=== PATIENT | female | born 1995 | race Caucasian/White ===

== ENCOUNTER 2016-06-30 15:37 | Observation (INO) | payer MEDICAID ==
[2016-06-30 16:53] VITALS: BP 107/59; PULSE 78
[2016-06-30 16:53] LABS: Collection Type CCMS
[2016-06-30 16:54] LABS: COMPLETE URINE MICROSCOPIC? NO
--- NOTE | 2016-07-01 08:39 | XRAY ---
Indication: well-being. Two-dimensional ultrasound biophysical profile study was performed. Comparison: None There is a single viable intrauterine with heart rate 144 bpm. 4 quadrant DEMAR is 13.8 cm. Largest amniotic pocket is 6.2 cm. 2 points given for breathing, movements, tone, and qualitative amniotic fluid volume. Impression: Total biophysical profile score is 8 out of 8. Comment: Preliminary report was given.
== END 2016-06-30 18:30 | disposition home or self-care (01) ==
LOC: MED SURG 15:37
PROVIDERS: ADMIT Family Medicine; ATTEND Family Medicine
DX: Z34.83 Encounter for supervision of other normal pregnancy, third trimester (principal)
CPT/HCPCS: 36415; 59025; 76819; 81002; 87070; 87430; 87522; G0378

== ENCOUNTER 2017-08-09 02:59 | Observation (INO) | payer MEDICAID, OTHER ==
[2017-08-09] MEDS ORDERED: Phenergan 25 MG INJ IV ONE (03:23)
[2017-08-09] MEDS ORDERED: SUBLIMAZE 100 MCG/2 ML IV ONE (03:23)
--- NOTE | 2017-08-09 03:24 | ERPHSYRPT ---
- History of Present Illness Time Seen by Provider: 08/09/17 03:16 Historian: patient Exam Limitations: no limitations Patient Subjective Stated Complaint: RUQ pain Triage Nursing Assessment: Pt presents to the ED with complaints of RUQ abdominal pain. Pt states she last ate approximately 4 hours ago. Pt states pain is 10/10, worse with movement. Pt states nausea but denies vomiting. Skin PWD, no distress noted. Physician History: FOR THE PAST 90 MINUTES PT HAS HAD SEVERE SHARP RUQ ABDOMINAL PAIN WITH NAUSEA; FOR THE PAST HOUR CHILLS. LAST BM WAS YESTERDAY & WNL. PT DENIES FEVER, RASH, DYSURIA. Allergies/Adverse Reactions: No Known Drug Allergies Allergy (Unverified 07/31/16 04:08) Hx Tetanus, Diphtheria Vaccination/Date Given: No Hx Influenza Vaccination/Date Given: No Hx Pneumococcal Vaccination/Date Given: No Immunizations Up to Date: No - Review of Systems Constitutional: Chills, No Fever Abdominal/Gastrointestinal: Abdominal Pain, Nausea Genitourinary Symptoms: No Dysuria Skin: No Rash All Other Systems: Reviewed and Negative - Past Medical History Pertinent Past Medical History: Yes Neurological History: No Pertinent History ENT History: No Pertinent History Cardiac History: No Pertinent History Respiratory History: No Pertinent History Endocrine Medical History: No Pertinent History Musculoskeletal History: No Pertinent History GI Medical History: No Pertinent History History: No Pertinent History Psycho-Social History: No Pertinent History Female Reproductive Disorders: No Pertinent History Other Medical History: MISCARRIED 1 TIME, hep c + - Past Surgical History Past Surgical History: No Neuro Surgical History: No Pertinent History Cardiac: No Pertinent History Respiratory: No Pertinent History Gastrointestinal: No Pertinent History Genitourinary: No Pertinent History Musculoskeletal: No Pertinent History Female Surgical History: No Pertinent History - Social History Smoking Status: Current every day smoker How long have you smoked: 10years Exposure to second hand smoke: Yes Drug Use: none Patient Lives Alone: No - Female History Hx Last Menstrual Period: 07/31/2017 Hx Now: No - Nursing Vital Signs Nursing Vital Signs: Initial Vital Signs Temperature 97.5 F 08/09/17 03:07 Pulse Rate 62 08/09/17 03:07 Respiratory Rate 16 08/09/17 03:07 Blood Pressure 127/92 08/09/17 03:07 O2 Sat by Pulse Oximetry 100 08/09/17 03:07 Pain Scale Pain Intensity 0 - Physical Exam General Appearance: moderate distress, alert Eye Exam: PERRL/EOMI Ears, Nose, Throat Exam: TMs normal, pharynx normal, moist mucous membranes Neck Exam: normal inspection Respiratory Exam: lungs clear Cardiovascular Exam: normal heart sounds Gastrointestinal/Abdomen Exam: soft, normal bowel sounds, tenderness (MODERATE RUQ ABDOMINAL TENDERNESS.) Back Exam: normal range of motion Extremity Exam: normal inspection, No pedal edema Neurologic Exam: alert, cooperative Skin Exam: warm, dry SpO2 Interpretation: normal SpO2: 100 Oxygen Delivery: Room Air - Course Nursing assessment & vital signs reviewed: Yes - CT Exams Abdomen/Pelvis CT Interpretation: Tele-radiologist Report (gallbladder distention. gallstone lodged in the gallbladder neck on coronal image 52. cholelithiasis. haziness of the gallbladder wall. suspicious for acute choledystitis. distended proximal jejunal bowel loops. suspicious for mild enteritis.) Ordered Tests: Active Orders 24 hr Category Date Time Status IV Insertion STAT Care 08/09/17 03:23 Active ABDOMEN AND PELVIS W/0 CONTRAS [CT] Stat Exams 08/09/17 03:23 Taken AMYLASE Stat Lab 08/09/17 03:37 Completed CBC W DIFF Stat Lab 08/09/17 03:37 Completed CMP Stat Lab 08/09/17 03:37 Completed CULTURE,URINE Stat Lab 08/09/17 03:37 Received HCG QUALITATIVE,SERUM Stat Lab 08/09/17 03:37 Completed LIPASE Stat Lab 08/09/17 03:37 Completed UA W/ MICROSCOPIC Stat Lab 08/09/17 03:37 Completed Medication Summary Generic Name Dose Route Start Last Admin Trade Name Freq PRN Reason Stop Dose Admin Sodium Chloride 1,000 mls @ 100 mls/hr 08/09/17 03:30 08/09/17 03:29 Sodium Chloride 0.9% 1000 Ml IV 09/08/17 03:29 100 mls/hr .Q10H MIGUELINA Administration Discontinued Medications Generic Name Dose Route Start Last Admin Trade Name Freq PRN Reason Stop Dose Admin Fentanyl Citrate 50 mcg 08/09/17 03:23 08/09/17 03:29 Sublimaze 100 Mcg/2 Ml IV 08/09/17 03:24 50 mcg STAT ONE Administration Fentanyl Citrate Confirm 08/09/17 03:28 Sublimaze 100 Mcg/2 Ml Administered 08/09/17 03:29 Dose 100 mcg .ROUTE .STK-MED ONE Ceftriaxone Sodium/Dextrose 1 g in 50 mls @ 100 mls/hr 08/09/17 04:20 04:31 Rocephin 1 Gm-D5w 50 Ml Bag IV 08/09/17 04:49 100 mls/hr STAT STA Administration Ceftriaxone Sodium/Dextrose Confirm 08/09/17 04:29 Rocephin 1 Gm-D5w 50 Ml Bag Administered 08/09/17 04:30 Dose 1 g in 50 mls @ ud IV .STK-MED ONE Promethazine HCl 12.5 mg 08/09/17 03:23 08/09/17 03:29 Phenergan 25 Mg Inj IV 08/09/17 03:24 12.5 mg STAT ONE Administration Promethazine HCl Confirm 08/09/17 03:27 Phenergan 25 Mg Inj Administered 08/09/17 03:28 Dose 25 mg .ROUTE .STK-MED ONE Lab/Rad Data: Laboratory Result Diagrams 08/09/17 03:37 08/09/17 03:37 Laboratory Results 08/09/17 08/09/17 08/09/17 Range/Units 03:37 03:37 03:37 WBC 10.8 H (4.0-10.5) K/mm3 RBC 4.53 (4.1-5.4) M/mm3 Hgb 11.3 L (12.0-16.0) gm/dl Hct 36.3 (35-47) % MCV 80.1 (78-100) fl MCH 24.9 L (26-32) pg MCHC 31.1 L (32-36) g/dl RDW 16.0 H (11.5-14.0) % Plt Count 235 (150-450) K/mm3 MPV 11.2 H (6-9.5) fl Gran % 70.8 H (36.0-66.0) % Lymphocytes % 20.2 L (24.0-44.0) % Monocytes % 6.6 (0.0-12.0) % Eosinophils % 2.1 (0.00-5.0) % Basophils % 0.3 (0.0-0.4) % Basophils # 0.03 (0-0.4) Sodium 139 (136-145) mEq/L Potassium 4.2 (3.5-5.1) mEq/L Chloride 105 (98-107) mEq/L Carbon Dioxide 24.9 (21-32) mEq/L Anion Gap 13.2 (5-15) MEQ/L BUN 12 (9-20) mg/dL Creatinine 0.95 (0.55-1.30) mg/dl Estimated GFR > 60 ML/MIN Glucose 114 H (70-110) MG/DL Calcium 8.8 (8.5-10.1) mg/dL Total Bilirubin < 0.10 L (0.2-1.0) mg/dL AST 44 H (15-37) U/L ALT 80 H (12-78) U/L Alkaline Phosphatase 66 (46-116) U/L Serum Total Protein 7.5 (6.4-8.2) gm/dL Albumin 3.8 (3.4-5.0) g/dL Amylase 32 (25-115) U/L Lipase 83 (73-393) U/L Serum , Qual NEGATIVE (Negative) Ur Collection Type Urine Color (YELLOW) Urine Appearance (CLEAR) Urine pH (5-6) Ur Specific [place] (1.005-1.025) Urine Protein (Negative) Urine Ketones (NEGATIVE) Urine Blood (0-5) Servando/ul Urine Nitrite (NEGATIVE) Urine Bilirubin (NEGATIVE) Urine Urobilinogen (0-1) mg/dL Ur Leukocyte Esterase (NEGATIVE) Urine Microscopic WBC (0-5) /HPF Ur Epithelial Cells (FEW) /HPF Urine Bacteria (NEGATIVE) /HPF Urine Culture Reflexed (NO) Urine Glucose (NEGATIVE) mg/dL Specimen Received 08/09/17 Range/Units 03:37 WBC (4.0-10.5) K/mm3 RBC (4.1-5.4) M/mm3 Hgb (12.0-16.0) gm/dl Hct (35-47) % MCV (78-100) fl MCH (26-32) pg MCHC (32-36) g/dl RDW (11.5-14.0) % Plt Count (150-450) K/mm3 MPV (6-9.5) fl Gran % (36.0-66.0) % Lymphocytes % (24.0-44.0) % Monocytes % (0.0-12.0) % Eosinophils % (0.00-5.0) % Basophils % (0.0-0.4) % Basophils # (0-0.4) Sodium (136-145) mEq/L Potassium (3.5-5.1) mEq/L Chloride (98-107) mEq/L Carbon Dioxide (21-32) mEq/L Anion Gap (5-15) MEQ/L BUN (9-20) mg/dL Creatinine (0.55-1.30) mg/dl Estimated GFR ML/MIN Glucose (70-110) MG/DL Calcium (8.5-10.1) mg/dL Total Bilirubin (0.2-1.0) mg/dL AST (15-37) U/L ALT (12-78) U/L Alkaline Phosphatase (46-116) U/L Serum Total Protein (6.4-8.2) gm/dL Albumin (3.4-5.0) g/dL Amylase (25-115) U/L Lipase (73-393) U/L Serum , Qual (Negative) Ur Collection Type CCMS Urine Color YELLOW (YELLOW) Urine Appearance SLIGHTLY CLOUDY (CLEAR) Urine pH 7.0 (5-6) Ur Specific [place] 1.020 (1.005-1.025) Urine Protein NEGATIVE (Negative) Urine Ketones NEGATIVE (NEGATIVE) Urine Blood NEGATIVE (0-5) Servando/ul Urine Nitrite POSITIVE (NEGATIVE) Urine Bilirubin NEGATIVE (NEGATIVE) Urine Urobilinogen NORMAL (0-1) mg/dL Ur Leukocyte Esterase TRACE (NEGATIVE) Urine Microscopic WBC 2-5 (0-5) /HPF Ur Epithelial Cells FEW (FEW) /HPF Urine Bacteria MANY (NEGATIVE) /HPF Urine Culture Reflexed YES (NO) Urine Glucose NEGATIVE (NEGATIVE) mg/dL Specimen Received 08-09-17 0415 - Progress Discussed with : Jenn (OBS - [id number]) - Departure Time of Disposition: 05:15 Departure Disposition: Observation Clinical Impression: UTI, CHOLECYSTITIS/CHOLELITHIASIS Condition: Stable Critical Care Time: No Referrals: VIVIANA MIN [Primary Care Provider] -
[2017-08-09] MEDS ORDERED: Phenergan 25 MG INJ ONE (03:27)
[2017-08-09] MEDS ORDERED: SUBLIMAZE 100 MCG/2 ML ONE (03:28)
[2017-08-09] MEDS ORDERED: Sodium Chloride 0.9% 1000 ML 1,000 ML ONE (03:28)
[2017-08-09] MEDS ORDERED: Sodium Chloride 0.9% 1000 ML 1,000 ML IV SCH ×2 (03:30→05:42)
[2017-08-09 03:41] LABS: BASOPHIL % 0.3 % (0.0-0.4); Basophil (Absolute #) 0.03 (0-0.4); Eosinophil % 2.1 % (0.00-5.0); Eosinophil (Absolute #) 0.23 (0-0.5); Granulocyte Absolute (ANC) 7.61 (1.4-6.9); Granulocytes % 70.8 % (36.0-66.0); Hematocrit 36.3 % (35-47); Hemoglobin 11.3 gm/dl (12.0-16.0); Lymphocyte (Absolute #) 2.17 (1.0-4.6); Lymphocytes % 20.2 % (24.0-44.0); Mean Cell Volume 80.1 fl (78-100); Mean Corpuscular Hemoglobin 24.9 pg (26-32); Mean Corpuscular Hgb Concent. 31.1 g/dl (32-36); Mean Platelet Volume 11.2 fl (6-9.5); Monocyte (Absolute #) 0.71 (0.0-1.3); Monocytes % 6.6 % (0.0-12.0); Platelet Count 235 K/mm3 (150-450); Red Blood Count 4.53 M/mm3 (4.1-5.4); White Blood Count 10.8 K/mm3 (4.0-10.5)
[2017-08-09 04:15] LABS: ALBUMIN 3.8 g/dL (3.4-5.0); ALKALINE PHOSPHATASE 66 U/L (46-116); AMYLASE 32 U/L (25-115); ANION GAP 13.2 MEQ/L (5-15); Appearance SLIGHTLY CLOUDY (CLEAR); BLOOD UREA NITROGEN 12 mg/dL (9-20); Bacteria MANY /HPF (NEGATIVE); Bilirubin NEGATIVE (NEGATIVE); Blood NEGATIVE Ery/ul (0-5); CHLORIDE 105 mEq/L (98-107); Calcium 8.8 mg/dL (8.5-10.1); Carbon Dioxide 24.9 mEq/L (21-32); Creatinine 1 0.95 mg/dl (0.55-1.30); EST GLOMERULAR FILTRATION RATE > 60 ML/MIN; Epithelial Cells FEW /HPF (FEW); Glucose 114 MG/DL (70-110); Glucose NEGATIVE (NEGATIVE); Ketones NEGATIVE (NEGATIVE); LIPASE 83 U/L (73-393); Leukocyte Esterase TRACE (NEGATIVE); Nitrite POSITIVE (NEGATIVE); Potassium 4.2 mEq/L (3.5-5.1); Protein,Urine Dip NEGATIVE (Negative); SGOT/AST 44 U/L (15-37); SGPT/ALT 80 U/L (12-78); SODIUM 139 mEq/L (136-145); Total Protein 7.5 gm/dL (6.4-8.2); Urobilinogen NORMAL mg/dL (0-1)
[2017-08-09] MEDS ORDERED: ROCEPHIN 1 Gm-D5w 50 ml Bag** 1 G/50 ML IVPB IV STA (04:20)
[2017-08-09] MEDS ORDERED: ROCEPHIN 1 Gm-D5w 50 ml Bag** 1 G/50 ML IVPB IV ONE (04:29)
[2017-08-09 04:31] LABS: BILIRUBIN,TOTAL < 0.10 mg/dL (0.2-1.0)
[2017-08-09] MEDS ORDERED: Zofran 4 MG/2 ML VIAL IV PRN (05:42)
[2017-08-09] MEDS ORDERED: Phenergan 25 MG INJ IV PRN (05:42)
[2017-08-09] MEDS: MORPHINE SULFATE 4 MG INJ IV PRN ×2 (08:15→14:23)
--- NOTE | 2017-08-09 09:19 | PCM.HP ---
History of Present Illness - Chief Complaint Chief Complaint: Acute cholecysitis History of Present Illness: is a 21 year old female pt with known cholelithiasis who came to ER last night with 10/10 RUQ pain. Nausea, no vomiting, no fever. She had eaten rotisserie chicken last night; she thinks the pain is due to the [place] food she ate the night before that, as fast food typically triggers her pain. She was supposed to see a surgeon out of town when she was living elsewhere but she ended up not able to make the appointment. Her pain is 2/10 right now, immediately after receiving IV pain meds. - Review of Systems Abdominal/Gastrointestinal: Abdominal Pain, Nausea, Other (dark stools) Neurological: Dizziness (with severe abd pain) Psychological: No Anxiety, No Depression, No Suicidal Ideations All Other Systems: Reviewed and Negative Medications & Allergies Home Medications: Home Medication List No Reportable Medications [No Reported Medications] 08/09/17 [History Confirmed 08/09/17] Allergies/Adverse Reactions: Allergies Allergy/AdvReac Type Severity Reaction Status Date / Time No Known Drug Allergies Allergy Unverified 07/31/16 04:08 - Past Medical History Past Medical History: Yes Neurological History: No Pertinent History ENT History: No Pertinent History Cardiac History: No Pertinent History Respiratory History: No Pertinent History Endocrine Medical History: No Pertinent History Musculoskelatal History: No Pertinent History GI Medical History: No Pertinent History History: No Pertinent History Pyscho-Social History: No Pertinent History Reproductive Disorders: No Pertinent History Comment: MISCARRIED 1 TIME, hep c + - Female History Hx Last Menstrual Period: 07/25/17 Are you now?: No - Past Surgical History Past Surgical History: No Neuro Surgical History: No Pertinent History Cardiac History: No Pertinent History Respiratory Surgery: No Pertinent History GI Surgical History: No Pertinent History Genitourinary Surgical Hx: No Pertinent History Musculskeletal Surgical Hx: No Pertinent History Female Surgical History: No Pertinent History Other Surgical History: c section - Social History Smoking Status: Current every day smoker How long have you smoked: 10years Exposure to second hand smoke: Yes Alcohol: None Drug Use: none - Physical Exam Vital Signs: Vital Signs - 24 hr Temp Pulse Resp BP Pulse Ox 08/09/17 08:23 97.8 F 86 18 132/62 99 08/09/17 08:00 97.8 F 85 18 134/65 99 08/09/17 07:36 97.8 F 85 18 134/65 99 08/09/17 05:15 100 08/09/17 04:36 69 16 112/60 100 08/09/17 03:07 97.5 F 62 16 127/92 100 General Appearance: no apparent distress, alert, obese Neurologic Exam: oriented x 3, cooperative Eye Exam: eyes nml inspection Ears, Nose, Throat Exam: moist mucous membranes Neck Exam: normal inspection Respiratory Exam: normal breath sounds, lungs clear, No crackles/rales, No rhonchi, No wheezing Cardiovascular Exam: regular rate/rhythm, normal heart sounds, No murmur Gastrointestinal/Abdomen Exam: soft, normal bowel sounds, tenderness (RUQ), No distention, No mass, No guarding, No rebound Back Exam: normal inspection, No CVA tenderness Assessment/Plan (1) Cholelithiases Current Visit: Yes Status: Acute Qualifiers: Cholelithiasis location: gallbladder Cholecystitis presence: with cholecystitis Cholecystitis acuity: acute and chronic Biliary obstruction: without biliary obstruction Qualified Code(s): K80.12 - Calculus of gallbladder with acute and chronic cholecystitis without obstruction Assessment & Plan: Will try CLD and advance as tolerated. If she can take po and have pain controlled on po meds will d/c home for OP f/u with surgery. Surgeon is aware, discussed with ER doctor last night, nothing acute currently. (2) UTI (urinary tract infection) Current Visit: No Status: Acute Qualifiers: Urinary tract infection type: acute cystitis Assessment & Plan: on IV rocephin. Code(s): N39.0 - URINARY TRACT INFECTION, SITE NOT SPECIFIED
--- NOTE | 2017-08-09 09:22 | XRAY ---
Indication: Right upper quadrant pain and nausea. History gallstones. Multiple contiguous axial images obtained through the abdomen and pelvis without contrast as ordered. Comparison: None. Lung bases are clear. Heart is not enlarged. Noncontrasted stomach and bowel loops again appear nonobstructed. Normal appendix. No free fluid/air. There is a 2 cm stone in the neck of the gallbladder with mildly distended gallbladder. No CT features for acute cholecystitis or biliary distention. There are a few scattered tiny mesenteric nodes, possible adenitis. Nonobstructing faint left nephrocalcinosis. Tiny cul-de-sac fluid presumed physiologic from ruptured/leaking cyst. Remaining liver, pancreas, spleen, adrenal glands, kidneys, ureters, bladder, uterus, and aorta appear unremarkable for noncontrast exam. Osseous structures intact. Impression: 1. 2.5 cm stone in the neck of the gallbladder with gallbladder distention. Gallbladder sonogram may yield further information. 2. Tiny mesenteric nodes, possible mesenteric adenitis. 3. Nonobstructing left nephrocalcinosis. 4. Cul-de-sac fluid presumed from ruptured/leaking cyst. Comment: Preliminary interpretation was made by [facility]. No critical discrepancy. CTDI 28.11
[2017-08-09] MEDS ORDERED: PROTONIX 40 MG IV IV SCH (10:00)
[2017-08-09 12:07] LABS: BASOPHIL % 0.2 % (0.0-0.4); Basophil (Absolute #) 0.02 (0-0.4); Eosinophil % 2.5 % (0.00-5.0); Eosinophil (Absolute #) 0.21 (0-0.5); Granulocyte Absolute (ANC) 5.22 (1.4-6.9); Granulocytes % 62.1 % (36.0-66.0); Hematocrit 36.2 % (35-47); Hemoglobin 11.2 gm/dl (12.0-16.0); Lymphocyte (Absolute #) 2.37 (1.0-4.6); Lymphocytes % 28.2 % (24.0-44.0); Mean Cell Volume 79.7 fl (78-100); Mean Corpuscular Hgb Concent. 30.9 g/dl (32-36); Mean Platelet Volume 10.4 fl (6-9.5); Monocyte (Absolute #) 0.59 (0.0-1.3); Platelet Count 244 K/mm3 (150-450); Red Blood Count 4.54 M/mm3 (4.1-5.4); Red Cell Distribution Width 15.9 % (11.5-14.0); White Blood Count 8.4 K/mm3 (4.0-10.5)
[2017-08-09 12:13] LABS: Mean Corpuscular Hemoglobin 24.6 pg (26-32)
[2017-08-09 12:57] LABS: ALBUMIN 3.1 g/dL (3.4-5.0); ALKALINE PHOSPHATASE 55 U/L (46-116); ANION GAP 11.1 MEQ/L (5-15); BLOOD UREA NITROGEN 8 mg/dL (9-20); CHLORIDE 109 mEq/L (98-107); Calcium 8.1 mg/dL (8.5-10.1); Carbon Dioxide 23.7 mEq/L (21-32); Creatinine 1 0.76 mg/dl (0.55-1.30); EST GLOMERULAR FILTRATION RATE > 60 ML/MIN; Glucose 81 MG/DL (70-110); Potassium 3.8 mEq/L (3.5-5.1); SGOT/AST 29 U/L (15-37); SGPT/ALT 64 U/L (12-78); SODIUM 140 mEq/L (136-145); Total Protein 6.5 gm/dL (6.4-8.2)
[2017-08-09 16:02] VITALS: BP 111/56; PULSE 72; O2SAT 95
--- NOTE | 2017-08-09 16:58 | PCM.DS ---
Discharge Summary Date of Admission: 08/09/17 05:36 Admitting Physician: VIVIANA MIN Primary Care Provider: VIVIANA MIN Allergies Allergies No Known Drug Allergies Allergy (Unverified 07/31/16 04:08) Hospital Summary - Hospital Course Hospital Course: Pt admitted through ER with abd pain, has cholelithiasis. Ct abd/pelvis done without acute changes. Pain much better with IV morphine. Today she has tolerated CLD and would like to go home; has appt iwht surgery in 5d (Monday) inthe morning. - Vitals & Intake/Output Vital Signs: Vital Signs Temperature 98.4 F 08/09/17 16:00 Pulse Rate 72 08/09/17 16:00 Respiratory Rate 16 08/09/17 16:00 Blood Pressure 111/56 08/09/17 16:00 O2 Sat by Pulse Oximetry 95 08/09/17 16:00 Intake & Output: Intake & Output 08/07/17 08/08/17 08/09/17 08/10/17 11:59 11:59 11:59 11:59 Intake Total 0 Balance 0 Weight 108.4 kg - Lab Result Diagrams: 08/09/17 12:00 08/09/17 12:00 Lab Results-Last 24 Hrs: Lab Results-Last 24 Hours 08/09/17 08/09/17 Range/Units 12:00 12:00 WBC 8.4 (4.0-10.5) K/mm3 RBC 4.54 (4.1-5.4) M/mm3 Hgb 11.2 L (12.0-16.0) gm/dl Hct 36.2 (35-47) % MCV 79.7 (78-100) fl MCH 24.6 L (26-32) pg MCHC 30.9 L (32-36) g/dl RDW 15.9 H (11.5-14.0) % Plt Count 244 (150-450) K/mm3 MPV 10.4 H (6-9.5) fl Gran % 62.1 (36.0-66.0) % Lymphocytes % 28.2 (24.0-44.0) % Monocytes % 7.0 (0.0-12.0) % Eosinophils % 2.5 (0.00-5.0) % Basophils % 0.2 (0.0-0.4) % Basophils # 0.02 (0-0.4) Sodium 140 (136-145) mEq/L Potassium 3.8 (3.5-5.1) mEq/L Chloride 109 H (98-107) mEq/L Carbon Dioxide 23.7 (21-32) mEq/L Anion Gap 11.1 (5-15) MEQ/L BUN 8 L (9-20) mg/dL Creatinine 0.76 (0.55-1.30) mg/dl Estimated GFR > 60 ML/MIN Glucose 81 (70-110) MG/DL Calcium 8.1 L (8.5-10.1) mg/dL Total Bilirubin 0.10 L (0.2-1.0) mg/dL AST 29 (15-37) U/L ALT 64 (12-78) U/L Alkaline Phosphatase 55 (46-116) U/L Serum Total Protein 6.5 (6.4-8.2) gm/dL Albumin 3.1 L (3.4-5.0) g/dL Discharge Exam General Appearance: no apparent distress, alert, obese (exam done this a.m.) Neurologic Exam: oriented x 3, cooperative Skin Exam: normal color, warm, dry, No rash Respiratory Exam: normal breath sounds, No crackles/rales, No rhonchi, No wheezing Cardiovascular Exam: regular rate/rhythm, normal heart sounds, No murmur Gastrointestinal/Abdomen Exam: soft, normal bowel sounds, tenderness ( generalized), No mass, No guarding, No rebound Extremity Exam: normal inspection, No swelling Final Diagnosis/Problem List - Final Discharge Diagnosis/Problem (1) Cholelithiases Current Visit: Yes Status: Acute Assessment & Plan: D/c with percocet, f/u wiht surgery in 5d. (2) UTI (urinary tract infection) Current Visit: Yes Status: Acute Assessment & Plan: start keflex. - Discharge Disposition: Home, Self-Care Condition: Stable Prescriptions: New Cephalexin Mh 500 mg [Keflex 500 mg] 500 mg PO QID 6 Days #24 capsule Oxycodone HCl/Acetaminophen [Percocet 10-325 mg Tablet] 1 each PO QID PRN # 20 tablet MDD 4 PRN Reason: Pain Instructions: Gallstones, Urinary Tract Infection, Adult (DC) Follow up with: JUAN MONTALVO [COURTESY STAFF] - 08/14/17 8:30 am ([facility]) VIVIANA MIN [Primary Care Provider] - Forms: Discharge Instructions
[2017-08-09] MEDS ORDERED: ROCEPHIN 1 Gm-D5w 50 ml Bag** 1 G/50 ML IVPB IV SCH (22:00)
== END 2017-08-09 20:15 | disposition home or self-care (01) ==
LOC: ED 02:59 → MED SURG 05:36
PROVIDERS: ADMIT Family Medicine; ATTEND Family Medicine
DX: K80.20 Calculus of gallbladder without cholecystitis without obstruction (principal); N39.0 Urinary tract infection, site not specified
CPT/HCPCS: 36000; 36415; 74176; 80053; 81000; 82150; 83690; 84703; 85025; 87077; 87086; 87186; 93268; 96360; 96365; 96374; 96375; 99285; G0378; J0696; J2270; J2550; J3010

== ENCOUNTER 2018-05-26 00:34 | Emergency (ER) | payer SELFPAY ==
[2018-05-26 00:45] VITALS: O2SAT 98
[2018-05-26] MEDS ORDERED: Zofran 4 MG/2 ML VIAL IV ONE (01:04)
[2018-05-26] MEDS ORDERED: PROTONIX 40 MG IV IV ONE ×2 (01:04→01:09)
[2018-05-26] MEDS ORDERED: Sodium Chloride 0.9% 1000 ML 1,000 ML IV STA (01:04)
[2018-05-26] MEDS ORDERED: Sodium Chloride 0.9% 1000 ML 1,000 ML ONE (01:09)
[2018-05-26] MEDS ORDERED: Zofran 4 MG/2 ML VIAL ONE (01:09)
[2018-05-26 01:15] LABS: BASOPHIL % 0.3 % (0.0-0.4); Basophil (Absolute #) 0.03 (0-0.4); Eosinophil % 1.3 % (0.00-5.0); Eosinophil (Absolute #) 0.14 (0-0.5); Granulocyte Absolute (ANC) 8.24 (1.4-6.9); Granulocytes % 75.7 % (36.0-66.0); Hematocrit 39.7 % (35-47); Hemoglobin 13.1 gm/dl (12.0-16.0); Lymphocyte (Absolute #) 1.66 (1.0-4.6); Lymphocytes % 15.3 % (24.0-44.0); Mean Cell Volume 83.8 fl (78-100); Mean Corpuscular Hemoglobin 27.6 pg (26-32); Mean Platelet Volume 11.8 fl (6-9.5); Monocyte (Absolute #) 0.81 (0.0-1.3); Monocytes % 7.4 % (0.0-12.0); Platelet Count 246 K/mm3 (150-450); Red Blood Count 4.74 M/mm3 (4.1-5.4); Red Cell Distribution Width 13.7 % (11.5-14.0); White Blood Count 10.9 K/mm3 (4.0-10.5)
--- NOTE | 2018-05-26 01:15 | ERPHSYRPT ---
- History of Present Illness Time Seen by Provider: 05/26/18 00:45 Historian: patient Exam Limitations: clinical condition Patient Subjective Stated Complaint: abd pain started about 11pm, sharp 8/10 pain in RUQ sometimes radiating to middle and in back, nausea, vomiting x2, had issues with gallbladder in past and states shes having another flare up, has had nothing to drink for few hours, pain is worse when lying down Triage Nursing Assessment: Pt A/O x3, abd soft tender, tender with palpation RUQ , bowel sounds active x4, appears to be in pain Physician History: PATIENT WITH A HISTORY OF GALLSTONES HEPATITIS-C COMPLAINS OF ACUTE ONSET OF SHARP RIGHT UPPER ABDOMINAL PAINS SINCE 11PM LAST NIGHT AFTER EATING A MEAL. HAS ASSOCIATED EMESIS X 2. DENIES FEVER, URINARY SYMPTOMS OR DIARRHEA. STATES PAIN IS CONSTANT WITH A PAIN SCALE 8/10. Timing/Duration: yesterday Activities at Onset: none Quality: sharpness, stabbing Abdominal Pain Onset Location: RUQ Pain Radiation: no radiation Severity of Pain-Max: severe Severity of Pain-Current: severe Modifying Factors: Improves With: vomiting Associated Symptoms: loss of appetite, nausea, vomiting Previous symptoms: same symptoms as today Allergies/Adverse Reactions: No Known Drug Allergies Allergy (Unverified 07/31/16 04:08) Hx Tetanus, Diphtheria Vaccination/Date Given: No Hx Influenza Vaccination/Date Given: No Hx Pneumococcal Vaccination/Date Given: No - Review of Systems Constitutional: No Fever, No Chills Eyes: No Symptoms Ears, Nose, & Throat: No Symptoms Respiratory: No Symptoms, No Cough, No Dyspnea Cardiac: No Symptoms, No Chest Pain, No Edema, No Syncope Abdominal/Gastrointestinal: Abdominal Pain, Nausea, Vomiting, No Diarrhea Genitourinary Symptoms: No Dysuria Musculoskeletal: No Symptoms, No Back Pain, No Neck Pain Skin: No Rash Neurological: No Dizziness, No Focal Weakness, No Sensory Changes Psychological: No Symptoms Endocrine: No Symptoms All Other Systems: Reviewed and Negative - Past Medical History Pertinent Past Medical History: Yes Neurological History: No Pertinent History ENT History: No Pertinent History Cardiac History: No Pertinent History Respiratory History: No Pertinent History Endocrine Medical History: No Pertinent History Musculoskeletal History: No Pertinent History GI Medical History: No Pertinent History History: No Pertinent History Psycho-Social History: No Pertinent History Female Reproductive Disorders: No Pertinent History Other Medical History: MISCARRIED 1 TIME, hep c + - Past Surgical History Past Surgical History: Yes Neuro Surgical History: No Pertinent History Cardiac: No Pertinent History Respiratory: No Pertinent History Gastrointestinal: No Pertinent History Genitourinary: No Pertinent History Musculoskeletal: No Pertinent History Female Surgical History: Section Other Surgical History: c section - Social History Smoking Status: Current every day smoker How long have you smoked: 8 years Exposure to second hand smoke: Yes Drug Use: none Patient Lives Alone: No - Female History Hx Last Menstrual Period: unsure Hx Now: No - Nursing Vital Signs Nursing Vital Signs: Initial Vital Signs Temperature 97.4 F 05/26/18 00:36 Pulse Rate 58 L 05/26/18 00:36 Respiratory Rate 18 05/26/18 00:36 Blood Pressure 135/68 05/26/18 00:36 O2 Sat by Pulse Oximetry 98 05/26/18 00:36 Pain Scale Pain Intensity 3 - Physical Exam General Appearance: moderate distress Eye Exam: PERRL/EOMI Ears, Nose, Throat Exam: normal ENT inspection Neck Exam: normal inspection Respiratory Exam: normal breath sounds Cardiovascular Exam: regular rate/rhythm Gastrointestinal/Abdomen Exam: soft, normal bowel sounds, tenderness (MARKED RIGHT UPPER QUAD TENDERNESS) Back Exam: normal inspection Extremity Exam: normal inspection Neurologic Exam: alert, oriented x 3, cooperative Skin Exam: normal color SpO2 Interpretation: normal SpO2: 98 Oxygen Delivery: Room Air - CT Exams Abdomen/Pelvis CT Interpretation: Tele-radiologist Report (CHOLELITHIASIS WITHOUT CT EVIDENCE OF ACUTE CHOLECYSTITIS, MINIMALLY COMPLEX 3.6CM RIGHT OVARIAN CYST) Ordered Tests: Active Orders 24 hr Category Date Time Status Clean Catch Urine Specimen STAT Care 05/26/18 01:04 Active IV Insertion STAT Care 05/26/18 01:04 Active ABDOMEN AND PELVIS W/0 CONTRAS [CT] Stat Exams 05/26/18 01:05 Taken AMYLASE Stat Lab 05/26/18 01:11 Completed CBC W DIFF Stat Lab 05/26/18 01:11 Completed CMP Stat Lab 05/26/18 01:11 Completed HCG,QUALITATIVE URINE Stat Lab 05/26/18 01:11 Completed LIPASE Stat Lab 05/26/18 01:11 Completed UA W/RFX UR CULTURE Stat Lab 05/26/18 01:11 Completed Urine Triage Profile Stat Lab 05/26/18 01:11 Completed Medication Summary Discontinued Medications Generic Name Dose Route Start Last Admin Trade Name Freq PRN Reason Stop Dose Admin Hydromorphone HCl 1 mg 05/26/18 01:18 05/26/18 01:41 Hydromorphone 1 Mg/Ml Ampule IV 05/26/18 01:19 1 mg STAT ONE Administration Hydromorphone HCl Confirm 05/26/18 01:36 Hydromorphone 1 Mg/Ml Ampule Administered 05/26/18 01:37 Dose 1 mg .ROUTE .STK-MED ONE Sodium Chloride 1,000 mls @ 999 mls/hr 05/26/18 01:04 05/26/18 01:11 Sodium Chloride 0.9% 1000 Ml IV 05/26/18 02:04 999 mls/hr .Q1H1M STA Administration Sodium Chloride Confirm 05/26/18 01:09 Sodium Chloride 0.9% 1000 Ml Administered 05/26/18 01:10 Dose 1,000 mls @ ud .ROUTE .STK-MED ONE Ketorolac Tromethamine 30 mg 05/26/18 02:33 05/26/18 02:44 Toradol 30 Mg Injection IV 05/26/18 02:34 30 mg STAT ONE Administration Ketorolac Tromethamine Confirm 05/26/18 02:35 Toradol 30 Mg Injection Administered 05/26/18 02:36 Dose 30 mg .ROUTE .STK-MED ONE Ondansetron HCl 4 mg 05/26/18 01:04 05/26/18 01:12 Zofran 4 Mg/2 Ml Vial IV 05/26/18 01:05 4 mg STAT ONE Administration Ondansetron HCl Confirm 05/26/18 01:09 Zofran 4 Mg/2 Ml Vial Administered 05/26/18 01:10 Dose 4 mg .ROUTE .STK-MED ONE Pantoprazole Sodium 40 mg 05/26/18 01:04 05/26/18 01:12 Protonix 40 Mg Iv IV 05/26/18 01:05 40 mg STAT ONE Administration Pantoprazole Sodium Confirm 05/26/18 01:09 Protonix 40 Mg Iv Administered 05/26/18 01:10 Dose 40 mg IV .STK-MED ONE Lab/Rad Data: Laboratory Result Diagrams 05/26/18 01:11 05/26/18 01:11 Laboratory Results 05/26/18 05/26/18 05/26/18 Range/Units 01:11 01:11 01:11 WBC (4.0-10.5) K/mm3 RBC (4.1-5.4) M/mm3 Hgb (12.0-16.0) gm/dl Hct (35-47) % MCV (78-100) fl MCH (26-32) pg MCHC (32-36) g/dl RDW (11.5-14.0) % Plt Count (150-450) K/mm3 MPV (6-9.5) fl Gran % (36.0-66.0) % Eos # (Auto) (0-0.5) Absolute Lymphs (auto) (1.0-4.6) Absolute Monos (auto) (0.0-1.3) Lymphocytes % (24.0-44.0) % Monocytes % (0.0-12.0) % Eosinophils % (0.00-5.0) % Basophils % (0.0-0.4) % Absolute Granulocytes (1.4-6.9) Basophils # (0-0.4) Sodium 137 (137-145) mmol/L Potassium 4.0 (3.5-5.1) mmol/L Chloride 103 (98-107) mmol/L Carbon Dioxide 24 (22-30) mmol/L Anion Gap 13.8 (5-15) MEQ/L BUN 17 (7-17) mg/dL Creatinine 0.67 (0.52-1.04) mg/dL Estimated GFR > 60.0 ML/MIN Glucose 132 H (74-106) mg/dL Calcium 9.7 (8.4-10.2) mg/dL Total Bilirubin 0.30 (0.2-1.3) mg/dL AST 25 (14-36) U/L ALT 37 H (0-35) U/L Alkaline Phosphatase 77 (38-126) U/L Serum Total Protein 7.9 (6.3-8.2) g/dL Albumin 4.6 (3.5-5.0) g/dL Amylase (30-110) U/L Lipase (23-300) U/L Urine Color (YELLOW) Urine Appearance (CLEAR) Urine pH (5-6) Ur Specific [place] (1.005-1.025) Urine Protein (Negative) Urine Ketones (NEGATIVE) Urine Blood (0-5) Servando/ul Urine Nitrite (NEGATIVE) Urine Bilirubin (NEGATIVE) Urine Urobilinogen (0-1) mg/dL Ur Leukocyte Esterase (NEGATIVE) Urine WBC (Auto) (0-5) /HPF Urine RBC (Auto) (0-2) /HPF U Epithel Cells (Auto) (FEW) /HPF Urine Bacteria (Auto) (NEGATIVE) /HPF Amorphous Crystals (NEGATIVE) /HPF Urine Mucus (Auto) (NEGATIVE) /HPF Urine Culture Reflexed (NO) Urine Glucose (NEGATIVE) mg/dL Urine HCG, Qual NEGATIVE (Negative) Urine Opiates Level NEGATIVE (NEGATIVE) Ur Methadone NEGATIVE (NEGATIVE) Urine Barbiturates NEGATIVE (NEGATIVE) Ur Phencyclidine (PCP) NEGATIVE (NEGATIVE) Urine Amphetamine NEGATIVE (NEGATIVE) U Benzodiazepine Level NEGATIVE (NEGATIVE) Urine Cocaine NEGATIVE (NEGATIVE) Urine Marijuana (THC) POSITIVE (NEGATIVE) 05/26/18 05/26/18 05/26/18 Range/Units 01:11 01:11 01:11 WBC 10.9 H (4.0-10.5) K/mm3 RBC 4.74 (4.1-5.4) M/mm3 Hgb 13.1 (12.0-16.0) gm/dl Hct 39.7 (35-47) % MCV 83.8 (78-100) fl MCH 27.6 (26-32) pg MCHC 33.0 (32-36) g/dl RDW 13.7 (11.5-14.0) % Plt Count 246 (150-450) K/mm3 MPV 11.8 H (6-9.5) fl Gran % 75.7 H (36.0-66.0) % Eos # (Auto) 0.14 (0-0.5) Absolute Lymphs (auto) 1.66 (1.0-4.6) Absolute Monos (auto) 0.81 (0.0-1.3) Lymphocytes % 15.3 L (24.0-44.0) % Monocytes % 7.4 (0.0-12.0) % Eosinophils % 1.3 (0.00-5.0) % Basophils % 0.3 (0.0-0.4) % Absolute Granulocytes 8.24 H (1.4-6.9) Basophils # 0.03 (0-0.4) Sodium (137-145) mmol/L Potassium (3.5-5.1) mmol/L Chloride (98-107) mmol/L Carbon Dioxide (22-30) mmol/L Anion Gap (5-15) MEQ/L BUN (7-17) mg/dL Creatinine (0.52-1.04) mg/dL Estimated GFR ML/MIN Glucose (74-106) mg/dL Calcium (8.4-10.2) mg/dL Total Bilirubin (0.2-1.3) mg/dL AST (14-36) U/L ALT (0-35) U/L Alkaline Phosphatase (38-126) U/L Serum Total Protein (6.3-8.2) g/dL Albumin (3.5-5.0) g/dL Amylase < 30 L (30-110) U/L Lipase 34 (23-300) U/L Urine Color YELLOW (YELLOW) Urine Appearance CLOUDY (CLEAR) Urine pH 7.0 (5-6) Ur Specific [place] 1.021 (1.005-1.025) Urine Protein NEGATIVE (Negative) Urine Ketones NEGATIVE (NEGATIVE) Urine Blood NEGATIVE (0-5) Servando/ul Urine Nitrite NEGATIVE (NEGATIVE) Urine Bilirubin NEGATIVE (NEGATIVE) Urine Urobilinogen NEGATIVE (0-1) mg/dL Ur Leukocyte Esterase NEGATIVE (NEGATIVE) Urine WBC (Auto) 3-5 (0-5) /HPF Urine RBC (Auto) 0-2 (0-2) /HPF U Epithel Cells (Auto) RARE (FEW) /HPF Urine Bacteria (Auto) NONE (NEGATIVE) /HPF Amorphous Crystals MODERATE (NEGATIVE) /HPF Urine Mucus (Auto) SLIGHT (NEGATIVE) /HPF Urine Culture Reflexed NO (NO) Urine Glucose NEGATIVE (NEGATIVE) mg/dL Urine HCG, Qual (Negative) Urine Opiates Level (NEGATIVE) Ur Methadone (NEGATIVE) Urine Barbiturates (NEGATIVE) Ur Phencyclidine (PCP) (NEGATIVE) Urine Amphetamine (NEGATIVE) U Benzodiazepine Level (NEGATIVE) Urine Cocaine (NEGATIVE) Urine Marijuana (THC) (NEGATIVE) - Progress Progress: improved Progress Note: 05/26/18 01:12 ADMINISTERED IV NORMAL SALINE 1000ML/HR BOLUS, ZOFAN 4MG, DILAUDID 1MG IV Counseled pt/family regarding: lab results, diagnosis, need for follow-up, rad results - Departure Time of Disposition: 03:16 Departure Disposition: Home Clinical Impression: ACUTE BILIARY COLIC, CHOLELITHIASIS, RIGHT OVARIAN CYST Condition: Stable Critical Care Time: No Referrals: JUAN MONTALVO [COURTESY STAFF] - ALEAH PALMA [ACTIVE STAFF] - RO PALMA MD [ASSOCIATE STAFF] - BURAK PALMA MD [ACTIVE STAFF] - VIVIANA MIN [ACTIVE STAFF] - Additional Instructions: BEGIN A CLEAR DIET FOR 24 HOURS AND THEN ADVANCE DIET TOLERATED. AVOID GREASY OR SPICY FOODS. ZOFRAN 4MG EVERY 6 HOURS FOR NAUSEA. TORADOL 10MG EVERY 6 HOURS FOR MILD TO MODERATE PAIN. [place] 10/325 EVERY 6 HOURS FOR SEVERE PAIN. FOLLOWUP WITH A GENERAL SURGEON AND A PRIMARY CARE PROVIDER FOR FOLLOWUP. Prescriptions: Hydrocodone/APAP 10/325 mg [[place] 10/325 MG Tablet] 1 tab PO Q6H PRN PRN # 12 tablet MDD 4 PRN Reason: Pain Ketorolac Tromethamine [Toradol] 10 mg PO Q6H PRN PRN #20 tablet PRN Reason: Pain Ondansetron ODT 4 MG [Zofran Odt 4 mg] 4 mg PO Q6H PRN PRN #10 tab.rapdis PRN Reason: Nausea
[2018-05-26] MEDS ORDERED: Hydromorphone 1 mg/ml Ampule IV ONE (01:18)
[2018-05-26 01:23] LABS: Appearance CLOUDY (CLEAR); Bilirubin NEGATIVE (NEGATIVE); Blood NEGATIVE Ery/ul (0-5); Glucose NEGATIVE (NEGATIVE); Ketones NEGATIVE (NEGATIVE); Leukocyte Esterase NEGATIVE (NEGATIVE); Nitrite NEGATIVE (NEGATIVE); Protein,Urine Dip NEGATIVE (Negative); Specific Gravity 1.021 (1.005-1.025); Urobilinogen NEGATIVE mg/dL (0-1)
[2018-05-26 01:26] LABS: ALBUMIN 4.6 g/dL (3.5-5.0); ALKALINE PHOSPHATASE 77 U/L (38-126); ANION GAP 13.8 MEQ/L (5-15); BLOOD UREA NITROGEN 17 mg/dL (7-17); CHLORIDE 103 mmol/L (98-107); Calcium 9.7 mg/dL (8.4-10.2); Carbon Dioxide 24 mmol/L (22-30); Creatinine 1 0.67 mg/dL (0.52-1.04); Glucose 132 mg/dL (74-106); SGOT/AST 25 U/L (14-36); SGPT/ALT 37 U/L (0-35); SODIUM 137 mmol/L (137-145); Total Protein 7.9 g/dL (6.3-8.2)
[2018-05-26 01:27] LABS: AMYLASE < 30 U/L (30-110); LIPASE 34 U/L (23-300)
[2018-05-26 01:36] LABS: Amphetamine,Urine NEGATIVE (NEGATIVE); Barbiturate,Urine NEGATIVE (NEGATIVE); Benzodiazepine,Urine NEGATIVE (NEGATIVE); Cocaine,Urine NEGATIVE (NEGATIVE); Methadone,Urine NEGATIVE (NEGATIVE); Opiate,Urine NEGATIVE (NEGATIVE); PCP,Urine NEGATIVE (NEGATIVE); THC,Urine POSITIVE (NEGATIVE)
[2018-05-26] MEDS ORDERED: Hydromorphone 1 mg/ml Ampule ONE (01:36)
[2018-05-26 02:17] VITALS: BP 106/53; PULSE 70
[2018-05-26] MEDS ORDERED: TORAdol 30 mg Injection IV ONE (02:33)
[2018-05-26] MEDS ORDERED: TORAdol 30 mg Injection ONE (02:35)
--- NOTE | 2018-05-26 09:29 | XRAY ---
Indication: Right upper quadrant pain. Multiple contiguous axial images obtained through the abdomen and pelvis without contrast as ordered. Comparison: August 09, 2017. Lung bases demonstrates minimal bibasilar dependent atelectasis. No infiltrate or effusion. Heart is not enlarged. Stomach is distended with food/fluid. Noncontrasted stomach and bowel loops appear nonobstructed. Normal appendix. Stable 2 cm stone in the neck of the gallbladder. New 4 cm right pelvic cystic mass. No free fluid/air. Remaining liver, gallbladder, pancreas, spleen, adrenal glands, kidneys, ureters, bladder, uterus, and aorta appear unremarkable for noncontrast exam. Osseous structures intact. No ventral or inguinal hernias. Impression: 1. New 4 cm right pelvic cystic mass probably ovary. Pelvic sonogram may yield further information if clinically warranted. 2. Stable 2 cm gallstone also better evaluated with ultrasound if clinically warranted. Comment: Preliminary interpretation was made by [facility]. No discrepancy. CTDI 23.49
== END 2018-05-26 03:30 | disposition home or self-care (01) ==
LOC: ED 00:34
DX: K80.70 Calculus of gallbladder and bile duct without cholecystitis without obstruction (principal); R11.2 Nausea with vomiting, unspecified; N83.201 Unspecified ovarian cyst, right side
CPT/HCPCS: 36000; 36415; 74176; 80053; 80307; 81001; 82150; 83690; 84703; 85025; 96360; 96374; 96375; 99284; J1170; J1885; J2405

== ENCOUNTER 2019-03-27 09:58 | Emergency (ER) | payer MEDICAID ==
--- NOTE | 2019-03-27 10:09 | ERPHSYRPT ---
- History of Present Illness Time Seen by Provider: 03/27/19 10:09 Historian: patient Exam Limitations: no limitations Patient Subjective Stated Complaint: Pt states "I had this same pain about 6 months ago and it was my gall bladder. I started to have lower right abdominal pain that goes into my back this morning around 6 am." Triage Nursing Assessment: Pt presented via [facility] ambulance, and placed in room 5. Pt alert and oriented X 3, skin pwd. Pt able to speak in clear full sentences. Pt guarding right lower side. Physician History: 23 yo with sudden onset RUQ sharp colicky moderate intensity pain with radiation to back without significant aggravatint/relieving factors associated with nausea and non projectile/non bilious vomiting x 1 around 8 am. pain is constant. reports having similar sx 6 months ago and was told she has gallstone. no fever . currently she is nauseated . no lower abdominal pain . Timing/Duration: today Abdominal Pain Onset Location: RUQ Pain Radiation: scapula Severity of Pain-Max: moderate Severity of Pain-Current: moderate Modifying Factors: Improves With: nothing Associated Symptoms: nausea, vomiting Previous symptoms: same symptoms as today Allergies/Adverse Reactions: No Known Drug Allergies Allergy (Verified 03/27/19 10:04) Hx Tetanus, Diphtheria Vaccination/Date Given: No Hx Influenza Vaccination/Date Given: No Hx Pneumococcal Vaccination/Date Given: No Immunizations Up to Date: Yes - Review of Systems Constitutional: No Symptoms Eyes: No Symptoms Ears, Nose, & Throat: No Symptoms Respiratory: No Symptoms Cardiac: No Symptoms Abdominal/Gastrointestinal: Abdominal Pain, Nausea, Vomiting Genitourinary Symptoms: No Symptoms Musculoskeletal: No Symptoms Skin: No Symptoms Neurological: No Symptoms Psychological: No Symptoms Endocrine: No Symptoms Hematologic/Lymphatic: No Symptoms - Past Medical History Pertinent Past Medical History: Yes Neurological History: No Pertinent History ENT History: No Pertinent History Cardiac History: No Pertinent History Respiratory History: No Pertinent History Endocrine Medical History: No Pertinent History Musculoskeletal History: No Pertinent History GI Medical History: No Pertinent History History: No Pertinent History Psycho-Social History: No Pertinent History Female Reproductive Disorders: No Pertinent History Other Medical History: MISCARRIED 1 TIME, hep c + - Past Surgical History Past Surgical History: Yes Neuro Surgical History: No Pertinent History Cardiac: No Pertinent History Respiratory: No Pertinent History Gastrointestinal: No Pertinent History Genitourinary: No Pertinent History Musculoskeletal: No Pertinent History Female Surgical History: Section Other Surgical History: c section - Social History Smoking Status: Current every day smoker How long have you smoked: years Exposure to second hand smoke: Yes Drug Use: none Patient Lives Alone: No - Female History Hx Last Menstrual Period: 02/24/2019 Hx Now: No - Nursing Vital Signs Nursing Vital Signs: Initial Vital Signs Temperature 98.2 F 03/27/19 09:59 Pulse Rate 58 L 03/27/19 09:59 Respiratory Rate 20 03/27/19 09:59 Blood Pressure 128/71 03/27/19 09:59 O2 Sat by Pulse Oximetry 99 03/27/19 09:59 Pain Scale Pain Intensity 4 - Physical Exam General Appearance: no apparent distress Eye Exam: eyes nml inspection Ears, Nose, Throat Exam: normal ENT inspection Neck Exam: normal inspection Respiratory Exam: normal breath sounds, chest tenderness, lungs clear Cardiovascular Exam: regular rate/rhythm, normal heart sounds Gastrointestinal/Abdomen Exam: soft, tenderness (RUQ , negative samantha ) Pelvic Exam: not done Back Exam: normal inspection, normal range of motion, No CVA tenderness Extremity Exam: normal inspection, normal range of motion Neurologic Exam: alert, oriented x 3, cooperative Skin Exam: normal color SpO2 Interpretation: normal SpO2: 99 Ordered Tests: Active Orders 24 hr Category Date Time Status GALLBLADDER [US] Stat Exams 03/27/19 10:30 Taken AMYLASE Stat Lab 03/27/19 10:30 Completed CBC W DIFF Stat Lab 03/27/19 10:30 Completed CMP Stat Lab 03/27/19 10:30 Completed HCG,QUALITATIVE URINE Stat Lab 03/27/19 11:42 Completed LIPASE Stat Lab 03/27/19 10:30 Completed Medication Summary Generic Name Dose Route Start Last Admin Trade Name Freq PRN Reason Stop Dose Admin Sodium Chloride 1,000 mls @ 999 mls/hr 03/27/19 12:07 03/27/19 12:16 Sodium Chloride 0.9% 1000 Ml IV 03/27/19 13:07 999 mls/hr .Q1H1M STA Administration Discontinued Medications Generic Name Dose Route Start Last Admin Trade Name Freq PRN Reason Stop Dose Admin Sodium Chloride Confirm 03/27/19 12:15 Sodium Chloride 0.9% 1000 Ml Administered 03/27/19 12:16 Dose 1,000 mls @ ud .ROUTE .STK-MED ONE Lab/Rad Data: Laboratory Result Diagrams 03/27/19 10:30 03/27/19 10:30 Laboratory Results 03/27/19 03/27/19 03/27/19 Range/Units 11:42 10:30 10:30 WBC 9.2 (4.0-10.5) K/mm3 RBC 4.84 (4.1-5.4) M/mm3 Hgb 13.4 (12.0-16.0) gm/dl Hct 41.2 (35-47) % MCV 85.1 (78-100) fl MCH 27.7 (26-32) pg MCHC 32.5 (32-36) g/dl RDW 14.3 H (11.5-14.0) % Plt Count 221 (150-450) K/mm3 MPV 12.5 H (6-9.5) fl Gran % 81.1 H (36.0-66.0) % Eos # (Auto) 0.10 (0-0.5) Absolute Lymphs (auto) 0.92 L (1.0-4.6) Absolute Monos (auto) 0.70 (0.0-1.3) Lymphocytes % 10.0 L (24.0-44.0) % Monocytes % 7.6 (0.0-12.0) % Eosinophils % 1.1 (0.00-5.0) % Basophils % 0.2 (0.0-0.4) % Absolute Granulocytes 7.45 H (1.4-6.9) Basophils # 0.02 (0-0.4) Sodium 141 (137-145) mmol/L Potassium 4.1 (3.5-5.1) mmol/L Chloride 107 (98-107) mmol/L Carbon Dioxide 24 (22-30) mmol/L Anion Gap 14.1 (5-15) MEQ/L BUN 10 (7-17) mg/dL Creatinine 0.72 (0.52-1.04) mg/dL Estimated GFR > 60.0 ML/MIN Glucose 114 H (74-106) mg/dL Calcium 9.2 (8.4-10.2) mg/dL Total Bilirubin 0.50 (0.2-1.3) mg/dL AST 19 (14-36) U/L ALT 21 (0-35) U/L Alkaline Phosphatase 56 (38-126) U/L Serum Total Protein 7.6 (6.3-8.2) g/dL Albumin 4.2 (3.5-5.0) g/dL Amylase 46 (30-110) U/L Lipase 28 (23-300) U/L Urine HCG, Qual NEGATIVE (Negative) - Progress Progress: improved, re-examined Progress Note: 03/27/19 12:36 SHE IS GIVEN ZOFRAN AND MORPHINE AND ON RE EVAL SHE IS FEELING MUCH BETTER. NO VOMITING WHILE IN HERE .NO PERITONEAL SIGNS ON REPEATED EVALS. HAS STABLE WORKUP. NORMAL WHITE COUNT/NORMAL LIVER ENZYME. US GALL BLADDER SHOWED STONE BUT NO ACUTE CHOLECYSTITIS. SHE HAS BILARY COLIC , OUTPATIENT APT WITH DR. PALMA IS MADE . DONT THINK SHE NEEDS ANY FURTHER WORKUP IS NEEDED AT PRESENT AND IS STABLE FOR DC. DISCUSSED SX/SN OF WORSENING NEEDING RETURN WHICH SHE SEEMS UNDERSTANDING 03/27/19 12:49 - Departure Departure Disposition: Home Clinical Impression: Cholelithiases Qualifiers: Cholelithiasis location: gallbladder Cholecystitis presence: without cholecystitis Biliary obstruction: without biliary obstruction Qualified Code(s) : K80.20 - Calculus of gallbladder without cholecystitis without obstruction Condition: Stable Critical Care Time: No Referrals: DOCTOR,NO FAMILY [Primary Care Provider] - ALEAH PALMA [ACTIVE STAFF] - 04/02/19 (04-02-2019) Prescriptions: Ibuprofen 600 mg PO Q6HPRN PRN 10 Days #20 tablet PRN Reason: Pain Ondansetron HCl [Zofran] 4 mg PO TID PRN #10 tablet PRN Reason: Nausea/Vomiting
[2019-03-27 10:39] LABS: Absolute Neutrophil Ct (ANC) 7.45 (1.4-6.9); BASOPHIL % 0.2 % (0.0-0.4); Basophil (Absolute #) 0.02 (0-0.4); Eosinophil % 1.1 % (0.00-5.0); Hematocrit 41.2 % (35-47); Hemoglobin 13.4 gm/dl (12.0-16.0); Lymphocyte (Absolute #) 0.92 (1.0-4.6); Mean Cell Volume 85.1 fl (78-100); Mean Corpuscular Hemoglobin 27.7 pg (26-32); Mean Corpuscular Hgb Concent. 32.5 g/dl (32-36); Mean Platelet Volume 12.5 fl (6-9.5); Monocytes % 7.6 % (0.0-12.0); Neutrophil % 81.1 % (36.0-66.0); Platelet Count 221 K/mm3 (150-450); Red Blood Count 4.84 M/mm3 (4.1-5.4); Red Cell Distribution Width 14.3 % (11.5-14.0); White Blood Count 9.2 K/mm3 (4.0-10.5)
[2019-03-27 10:53] LABS: ALBUMIN 4.2 g/dL (3.5-5.0); ALKALINE PHOSPHATASE 56 U/L (38-126); AMYLASE 46 U/L (30-110); ANION GAP 14.1 MEQ/L (5-15); BLOOD UREA NITROGEN 10 mg/dL (7-17); CHLORIDE 107 mmol/L (98-107); Calcium 9.2 mg/dL (8.4-10.2); Carbon Dioxide 24 mmol/L (22-30); Creatinine 1 0.72 mg/dL (0.52-1.04); Glucose 114 mg/dL (74-106); LIPASE 28 U/L (23-300); Potassium 4.1 mmol/L (3.5-5.1); SGOT/AST 19 U/L (14-36); SGPT/ALT 21 U/L (0-35); SODIUM 141 mmol/L (137-145); Total Protein 7.6 g/dL (6.3-8.2)
[2019-03-27] MEDS ORDERED: Sodium Chloride 0.9% 1000 ML 1,000 ML IV STA (12:07)
[2019-03-27 12:08] VITALS: BP 96/53
[2019-03-27] MEDS ORDERED: Sodium Chloride 0.9% 1000 ML 1,000 ML ONE (12:15)
[2019-03-27 13:33] VITALS: PULSE 78; O2SAT 97
--- NOTE | 2019-03-27 16:36 | XRAY ---
Indication: Abdomen pain. Two-dimensional gallbladder sonogram performed. Comparison: None Gallbladder normally distended with 1.4 cm gallstone. No gallbladder wall thickening or pericholecystic fluid. Common bile duct measures 2.3 mm. Remaining visualized liver, pancreas, and right kidney appear sonographically normal. Right kidney measures 8.3 cm in length. No ascites. Impression: Cholelithiasis without cholecystitis or biliary distention.
== END 2019-03-27 13:48 | disposition home or self-care (01) ==
LOC: ED 09:58
DX: K80.20 Calculus of gallbladder without cholecystitis without obstruction (principal)
CPT/HCPCS: 36000; 36415; 76705; 80053; 82150; 83690; 84703; 85025; 96360; 99284